=== PATIENT | female | born 1955 | race Caucasian/White ===

== ENCOUNTER 2016-08-28 08:25 | Emergency (ER) | payer MEDICARE, OTHER ==
--- NOTE | ~2016-08-28 | CT2 ---
[facility]. [facility] A Service of [facility] RADIOLOGY TEXT RESULTS PATIENT: MADDI CASTELLON LOCATION: SED : 57 UNIT #: [id number] AGE: [address]: Rodrick Anthony MD SEX: F ORDER DR: [id number] [place] [id number] E MR#: [id number] Acc #: [id number] NAME: MADDI CASTELLON : 1955 SEX: F STUDY DATE/TIME: 08/28/2016 10:41 UNIT: SED ROOM: STUDY DESCRIPTION: CT Abd and Pelv W Cont Attending Physician: Rodrick Anthony M.D. Ordering Physician: Rodrick Anthony M.D. Primary Care Physician: Oriana Wetzel M.D. MEDICAL IMAGING REPORT This report is preliminary unless electronic signature is present. EXAM CT abdomen and pelvis with contrast. INDICATIONS Right and left lower quadrant abdominal pain since 03:00 a.m. this morning. PROCEDURE Contrast-enhanced CT of the abdomen and pelvis. This CT exam was performed with one or more of the following radiation dose reduction techniques: automatic exposure control, adjustment of mA and/or kV according to patient size, and iterative reconstruction. COMPARISON 06/12/2011 FINDINGS ABDOMEN WITH CONTRAST: Included lung bases are predominately clear. The liver is borderline enlarged at 19 cm. Spleen mildly enlarged at 13.5 cm. No liver or splenic mass. The kidneys, adrenal glands, pancreas are unremarkable. Previous cholecystectomy. Bowel loops are nondilated. Appendix is normal. PELVIS WITH CONTRAST: Previous hysterectomy. There are sigmoid diverticula. There is mild thickening and questionable mild inflammatory change around the distal sigmoid colon. There is no evidence for abscess or perforation. No aggressive-appearing bone lesion. IMPRESSION 1. Sigmoid diverticula. Suspected mild acute diverticulitis in the distal sigmoid colon. There is no abscess or perforation. 2. Appendix is normal. [facility] A Service [facility][1] RADIOLOGY TEXT RESULTS PATIENT: MADDI CASTELLON LOCATION: SED : 57 UNIT #: [id number] AGE: [address]: Rodrick Anthony MD SEX: F ORDER DR: 3. Borderline hepatomegaly. Mild splenomegaly. Dictated by... Pavan Haro M.D. THIS IS AN ELECTRONICALLY VERIFIED REPORT Pavan Haro M.D. at 08/29/2016 10:12 PM FAINA/mariano TD: 08/28/2016 14:54 JOB #: [id number] MEDICAL IMAGING REPORT Page 1 of 1
[~2016-08-28 08:25] MED LIST: ACETAMINOPHEN PO; APAP BUTALBITAL PO; ASPIRINEC PO; ASTEPRO205.5 MCG/; ATENOLOL PO; COREG12.5 MG PO; DEMADEX PO; FAMOTIDINE PO; FISH OIL 1,0001 EAC1 PO; GARLIC500 MG PO; GINGER500 MG PO; LEVOTHYROXINE137 MCG PO; LEVOTHYROXINE150 MCG PO; MEVACOR PO; MULTIPLE VITAMI1 T11 PO; NEURONTIN PO; NEXIUM PO; PRILOSEC PO; PROZAC PO; SMOOTHLAX17 GM PO; SYNTHROID PO; ULTRAM PO; UNKNOWN CHOLESTEROL; VIVELLE.0375 MG/2 TOP; ZEGERID40 MG/PKT PO; [UNRECOGNIZED DRUG - OTHER] PO
[2016-08-28] MEDS ORDERED: OMEPRAZOLE40 M1 PO (08:36)
[2016-08-28] MEDS ORDERED: SPIRONOLAC1 TAB 25/2 PO (08:37)
[2016-08-28] MEDS ORDERED: REMIFEMIN (08:37)
[2016-08-28 09:21] LABS: URINE SOURCE CLEAN CATCH
[2016-08-28 09:24] LABS: BASOPHIL# 0.1 X10e3 (0-0.3); BASOPHIL% 1.4 % (0-2.5); DIFF IND NO; EOSINOPHIL# 0.1 X10e3 (0-0.7); EOSINOPHIL% 2.3 % (0.0-7.0); HEMATOCRIT 40.5 % (35.0-45.0); LYMPHOCYTE# 1.1 X10e3 (1.0-3.5); LYMPHOCYTE% 19.7 % (17.0-45.0); MEAN CORPUSCULAR HEMOGLOBIN 30.8 PG (28-34); MEAN CORPUSCULAR HGB CONC 34.6 g/dL (30-36); MEAN PLATELET VOLUME 7.3 FL (6.5-11.5); MONOCYTE# 0.5 X10e3 (0-1.0); MONOCYTE% 9.1 % (3.0-12.0); NEUTROPHIL# 3.9 X10e3 (1.5-7.1); NEUTROPHIL% 67.5 % (40-75); PLATELET COUNT 339 X10e3 (140-420); RED BLOOD COUNT 4.55 X10e (3.90-5.30); RED CELL DISTRIBUTION WIDTH 13.6 % (11.0-15.5); WHITE BLOOD COUNT 5.7 X10e3 (4.0-10.5)
[2016-08-28 09:24] LABS: URINE APPEARANCE CLEAR; URINE BILIRUBIN NEG (NEG); URINE BLOOD NEG (NEG); URINE COLOR YELLOW; URINE GLUCOSE NEG (NORM); URINE KETONE NEG (NEG); URINE LEUKOCYTE ESTERASE NEG (NEG); URINE NITRATE POS (NEG); URINE PROTEIN NEG (NEG); URINE SPECIFIC GRAVITY 1.015 (1.003-1.035); URINE UROBILINOGEN 0.2 MG/DL (NORM)
[2016-08-28 09:25] LABS: MICRO INDICATED? YES
[2016-08-28 09:45] LABS: CULTURE INDICATED? YES; URINE BACTERIA 1+ (NEG); URINE RBC NEG /[HPF] (0-2); URINE SQUAMOUS EPITHELIAL CELL FEW /[HPF]; URINE WBC 0-2 /[HPF] (0-5)
[2016-08-28 09:55] LABS: ALBUMIN SERUM 4.3 g/dL (3.5-5.0); BILIRUBIN, DIRECT 0.1 mg/dL (0.0-0.2); BILIRUBIN,INDIRECT 0.5 mg/dL (0.0-0.9); BILIRUBIN,TOTAL 0.6 mg/dL (0.2-2.0); BUN/CREATININE RATIO 17.14; CALCIUM SERUM 9.7 mg/dL (8.4-10.2); CREATININE SERUM 0.7 mg/dL (0.6-1.4); GLOM FILT RATE Estimated 94.2 mL/min (>60); PROTEIN TOTAL SERUM 8.1 g/dL (6.0-8.3)
== END 2016-08-28 11:48 | disposition home or self-care (01) ==
LOC: SED 08:25
PROVIDERS: Emergency Medicine
DX: K57.32 Diverticulitis of large intestine without perforation or abscess without bleeding (principal); F41.9 Anxiety disorder, unspecified; J44.9 Chronic obstructive pulmonary disease, unspecified; F17.200 Nicotine dependence, unspecified, uncomplicated; Z90.49 Acquired absence of other specified parts of digestive tract; Z90.710 Acquired absence of both cervix and uterus; Z88.5 Allergy status to narcotic agent; Z79.899 Other long term (current) drug therapy
CPT/HCPCS: 36415; 74177; 80048; 80076; 81003; 82150; 83690; 85025; 87086; 87088; 87186; 96361; 96374; 96375; 99284; J2270; J2405; Q9967